=== PATIENT | male | born 1985 | race Caucasian/White ===

== ENCOUNTER 2018-09-20 22:01 | Emergency (ER) | payer MEDICAID ==
[~2018-09-20] VITALS: Ht 152.4 cm; Wt 63.5 kg
[2018-09-20 22:04] VITALS: BP 129/77
[2018-09-20] MEDS ORDERED: CLINDAMYCIN 600 MG/4 ML VIAL IM ONE (22:30)
[2018-09-20] MEDS ORDERED: KETOROLAC 60 MG/2 ML VIAL IM ONE (22:30)
[2018-09-20 23:15] VITALS: BP 113/65
== END 2018-09-20 23:15 | disposition home or self-care (01) ==
LOC: MED 22:01
DX: S50.861A Insect bite (nonvenomous) of right forearm, initial encounter (principal); L03.113 Cellulitis of right upper limb; W57.XXXA Bitten or stung by nonvenomous insect and other nonvenomous arthropods, initial encounter; Y93.89 Activity, other specified; Y92.89 Other specified places as the place of occurrence of the external cause; Y99.8 Other external cause status
CPT/HCPCS: 71045; 96372; 99284; J1885; J3490